=== PATIENT | male | born 1970 | race Caucasian/White ===

== ENCOUNTER 2019-09-14 19:16 | Observation (INO) | payer BC ==
[2019-09-14 19:30] VITALS: RESP 18
[2019-09-14 20:11] LABS: Basophils % (A) 1 %; Eosinophils # (A) 0.1 k/uL (0-0.7); Eosinophils % (A) 2 %; HCT 43.7 % (39.0-53.0); Lymphocytes # (A) 1.2 k/uL (1.0-4.8); Lymphocytes % (A) 27 %; MCH 30.1 pg (25.0-35.0); MCHC 34.4 g/dL (31.0-37.0); MCV 87.3 fL (80.0-100.0); Mean Platelet Volume 7.2; Monocytes # (A) 0.3 k/uL (0-1.0); Monocytes % (A) 7 %; Neutrophils # (A) 2.8 k/uL (1.3-7.7); Neutrophils % (A) 61 %; Platelet Count 259 k/uL (150-450); RDW 12.3 % (11.5-15.5); WBC 4.5 k/uL (3.8-10.6)
[2019-09-14 20:19] LABS: ALT 19 U/L (4-49); AST 30 U/L (17-59); African American GFR (CKD) >90 (>60 ml/min/1.73 sqM); Alkaline Phosphatase 62 U/L (38-126); Anion Gap 7 mmol/L; Blood Urea Nitrogen 15 mg/dL (9-20); Calcium 9.2 mg/dL (8.4-10.2); Carbon Dioxide 25 mmol/L (22-30); Chloride 108 mmol/L (98-107); Glucose 101 mg/dL (74-99); Non-African American GFR(CKD) >90 (>60 ml/min/1.73 sqM); Partial Thromboplastin Time 23.7 sec (22.0-30.0); Potassium 4.2 mmol/L (3.5-5.1); Prothrombin Time 10.5 sec (9.0-12.0); Sodium 140 mmol/L (137-145); Total Bilirubin 0.7 mg/dL (0.2-1.3); Total Protein 6.6 g/dL (6.3-8.2)
--- NOTE | 2019-09-14 20:53 | ED ---
General Adult HPI - General Chief complaint: Chest Pain Stated complaint: Chest Pain Time Seen by Provider: 09/14/19 19:18 Source: patient, EMS Mode of arrival: EMS Limitations: no limitations - History of Present Illness Initial comments: Dictation was produced using [employer] dictation software. please excuse any grammatical, word or spelling errors. Chief Complaint: 49-year-old male presents with chest pain. History of Present Illness: Manju is a 49-year-old male who presents today with chest pain. Patient has no past medical history. States he was at his [employer] when he began experiencing substernal chest pressure. He states that it lasted for several minutes. 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 He called his [employer] who performed EKG. He was given nitroglycerin and aspirin with some improvement of his symptoms. He was then brought to the emergency department for further evaluation. No strong family history. Denies any history of tobacco abuse. No history of hypertension or dyslipidemia. He reports that he does have some light pressure currently however spent improved since the nitroglycerin. The ROS documented in this emergency department record has been reviewed and confirmed by me. Those systems with pertinent positive or negative responses have been documented in the HPI. All other systems are other negative and/or noncontributory. PHYSICAL EXAM: General Impression: Alert and oriented x3, not in acute distress HEENT: Normocephalic atraumatic, extra-ocular movements intact, pupils equal and reactive to light bilaterally, mucous membranes moist. Cardiovascular: Heart regular rate and rhythm, S1&S2 audible, no murmurs, rubs or gallops Chest: Lungs clear to auscultation bilaterally, no rhonchi, no wheeze, no rales Abdomen: Bowel sounds present, abdomen soft, non-tender, non-distended, no organomegaly Musculoskeletal: Pulses present and equal in all extremities, no peripheral edema Motor: no focal deficits noted Neurological: CN II-XII grossly intact, no focal motor or sensory deficits noted Skin: Intact with no visualized rashes Psych: Normal affect and mood ED course: 49-year-old male presents with clinical presentation concerning for acute coronary syndrome. As upon arrival are within acceptable limits. EKG does not demonstrate STEMI or ischemia at this time. Laboratory evaluation obtained. CBC, coag panel, metabolic panel is unre markable. First troponin is negative. Chest x-ray is nonacute. Repeat EKG was obtained showing no dynamic changes. Patient reevaluated at bedside with stable medical condition. Patient will be admitted to observation for surgical and is a cardiology consultation. Discussed patient case with Dr. Carver who is willing to accept patients care. EKG interpretation: Ventricular rate 86, normal sinus rhythm,. Interval 126, QS 84, QTC 421. No AL prolongation, no QTC prolongation, no ST or T-wave changes noted. Overall, this EKG is unremarkable - Related Data Home Medications Medication Instructions Recorded Confirmed Loratadine [Claritin] 10 mg PO DAILY 09/14/19 09/14/19 Multivitamins, Thera [Multivitamin 1 tab PO DAILY 09/14/19 09/14/19 (formulary)] Review of Systems ROS Statement: Those systems with pertinent positive or pertinent negative responses have been documented in the HPI. ROS Other: All systems not noted in ROS Statement are negative. Past Medical History History of Any Multi-Drug Resistant Organisms: None Reported Past Surgical History: Orthopedic Surgery Additional Past Surgical History / Comment(s): 2010 cranial surgery, childhood hip surgery Past Psychological History: No Psychological Hx Reported Smoking Status: Never smoker Past Alcohol Use History: None Reported Past Drug Use History: None Reported General Exam Limitations: no limitations Course Vital Signs 09/14/19 19:19 Temperature 98.0 F Pulse Rate 85 Respiratory 18 Rate Blood Pressure 140/91 O2 Sat by Pulse 96 Oximetry Medical Decision Making - Lab Data Result diagrams: 09/14/19 19:35 09/14/19 19:35 Lab Results 09/14/19 09/14/19 09/14/19 Range/Units 19:35 19:35 19:35 WBC 4.5 (3.8-10.6) k/uL RBC 5.00 (4.30-5.90) m/uL Hgb 15.0 (13.0-17.5) gm/dL Hct 43.7 (39.0-53.0) % MCV 87.3 (80.0-100.0) fL MCH 30.1 (25.0-35.0) pg MCHC 34.4 (31.0-37.0) g/dL RDW 12.3 (11.5-15.5) % Plt Count 259 (150-450) k/uL Neutrophils % 61 % Lymphocytes % 27 % Monocytes % 7 % Eosinophils % 2 % Basophils % 1 % Neutrophils # 2.8 (1.3-7.7) k/uL Lymphocytes # 1.2 (1.0-4.8) k/uL Monocytes # 0.3 (0-1.0) k/uL Eosinophils # 0.1 (0-0.7) k/uL Basophils # 0.0 (0-0.2) k/uL PT 10.5 (9.0-12.0) sec INR 1.0 (<1.2) APTT 23.7 (22.0-30.0) sec Sodium 140 (137-145) mmol/L Potassium 4.2 (3.5-5.1) mmol/L Chloride 108 H (98-107) mmol/L Carbon Dioxide 25 (22-30) mmol/L Anion Gap 7 mmol/L BUN 15 (9-20) mg/dL Creatinine 0.87 (0.66-1.25) mg/dL Est GFR (CKD-EPI)AfAm >90 (>60 ml/min/1.73 sqM) Est GFR (CKD-EPI)NonAf >90 (>60 ml/min/1.73 sqM) Glucose 101 H (74-99) mg/dL Calcium 9.2 (8.4-10.2) mg/dL Magnesium 2.0 (1.6-2.3) mg/dL Total Bilirubin 0.7 (0.2-1.3) mg/dL AST 30 (17-59) U/L ALT 19 (4-49) U/L Alkaline Phosphatase 62 (38-126) U/L Troponin I (0.000-0.034) ng/mL Total Protein 6.6 (6.3-8.2) g/dL Albumin 4.0 (3.5-5.0) g/dL 09/14/19 Range/Units 19:35 WBC (3.8-10.6) k/uL RBC (4.30-5.90) m/uL Hgb (13.0-17.5) gm/dL Hct (39.0-53.0) % MCV (80.0-100.0) fL MCH (25.0-35.0) pg MCHC (31.0-37.0) g/dL RDW (11.5-15.5) % Plt Count (150-450) k/uL Neutrophils % % Lymphocytes % % Monocytes % % Eosinophils % % Basophils % % Neutrophils # (1.3-7.7) k/uL Lymphocytes # (1.0-4.8) k/uL Monocytes # (0-1.0) k/uL Eosinophils # (0-0.7) k/uL Basophils # (0-0.2) k/uL PT (9.0-12.0) sec INR (<1.2) APTT (22.0-30.0) sec Sodium (137-145) mmol/L Potassium (3.5-5.1) mmol/L Chloride (98-107) mmol/L Carbon Dioxide (22-30) mmol/L Anion Gap mmol/L BUN (9-20) mg/dL Creatinine (0.66-1.25) mg/dL Est GFR (CKD-EPI)AfAm (>60 ml/min/1.73 sqM) Est GFR (CKD-EPI)NonAf (>60 ml/min/1.73 sqM) Glucose (74-99) mg/dL Calcium (8.4-10.2) mg/dL Magnesium (1.6-2.3) mg/dL Total Bilirubin (0.2-1.3) mg/dL AST (17-59) U/L ALT (4-49) U/L Alkaline Phosphatase (38-126) U/L Troponin I <0.012 (0.000-0.034) ng/mL Total Protein (6.3-8.2) g/dL Albumin (3.5-5.0) g/dL Disposition Clinical Impression: Chest pain Disposition: ADMITTED IP TO THIS [facility] Condition: Fair Referrals: Alison Marques MD [Primary Care Provider] - 1-2 days Decision Time: 21:10
--- NOTE | 2019-09-14 20:56 | XR ---
EXAMINATION: XR chest 2V DATE AND TIME: 09/14/2019 8:05 PM CLINICAL INDICATION: PHH; Chest Pain TECHNIQUE: Departmental protocol COMPARISON: None FINDINGS: The lungs are clear. The pleural spaces are negative. The cardiac silhouette is not enlarged. The remainder of the mediastinal silhouette is unremarkable. The skeletal structures and soft tissues are negative for acute findings. IMPRESSION: NO ACUTE PROCESS.
[2019-09-14] MEDS ORDERED: NITROGLYCERIN SL TABS 0.4 MG TAB SUBLINGUAL PRN (21:07)
[2019-09-14] MEDS ORDERED: ACETAMINOPHEN TAB 500 MG TAB PO STA (21:41)
[2019-09-15 07:32] LABS: Cholesterol 141 mg/dL (<200); HDL Cholesterol 40 mg/dL (40-60); LDL Cholesterol,Calculated 89 mg/dL (0-99); Triglycerides 61 mg/dL (<150)
--- NOTE | 2019-09-15 08:51 | P.CRDCN ---
History of Present Illness History of present illness: HISTORY OF PRESENTING ILLNESS This is a pleasant 49-year-old male with no significant past medical history. 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 We have been asked to see in consultation for chest pain. He states for the previous 2 days he has been experiencing intermittent pain in the chest described as a pressure like someone is pushing on his chest. Initially he had the discomfort that was intermittent, not associated with activity or exertion with no radiation to the arm, back, neck or jaw. On Friday night he did have some mild nausea associated with it. He took some Tums and went to sleep. He woke up Friday feeling normal however as the day went on he continued to have intermittent pressure, the nausea had subsided. He has a physically active job and didn't notice that the pain was worse with activity or oral intake. Later in the evening on Friday he was watching a choir concert when he again felt a pressure in the chest this time it seemed to radiate throughout the entire chest and fan out. He had associated lightheaded feeling, shortness of breath, diaphoresis and his told him he was quite pale. EMS was called. On arrival his blood pressure is noted to be quite high in the 180s systolic. He was given some Bentyl nitroglycerin and aspirin. In route to the emergency department his chest discomfort didn't subside. DIAGNOSTICS EKG reveals sinus mechanism 2. Chest xray negative for an acute cardiopulmonary process. Laboratory reviewed, CBC unremarkable, sodium 140, potassium 4.2, creatinine 0.87, cardiac enzymes negative 3, magnesium 2.0, LDL 89. He takes no daily cardiac medications. REVIEW OF SYSTEMS At the time of my exam: CONSTITUTIONAL: Denies fever or chills. CARDIOVASCULAR: Denies chest pain, shortness of breath, orthopnea, PND or palpitations. RESPIRATORY: Denies cough. GASTROINTESTINAL: Denies abdominal pain, diarrhea, constipation, nausea or vomiting. MUSCULOSKELETAL: Denies myalgias. NEUROLOGIC: Denies numbness, tingling or weakness. ENDOCRINE: Denies fatigue, weight change, polydipsia or polyurina. GENITOURINARY: Denies burning, hematuria or urgency with micturation. HEMATOLOGIC: Denies history of anemia or bleeding. PHYSICAL EXAMINATION Blood pressure 112/73 heart rate 73 afebrile and maintaining oxygen saturation on room air. CONSTITUTIONAL: No apparent distress. HEENT: Head is normocephalic. Pupils are equal, round. Sclerae anicteric. Mucous membranes of the mouth are moist. No JVD. No carotid bruit. CHEST EXAMINATION: Lungs are clear to auscultation. No chest wall tenderness is noted on palpation or with deep breathing. HEART EXAMINATION: Regular rate and rhythm. S1, S2 heard. No murmurs, gallops or rub. ABDOMEN: Soft, nontender. Positive bowel sounds. EXTREMITIES: 2+ peripheral pulses, no lower extremity edema and no calf tenderness. NEUROLOGIC EXAMINATION: Patient is awake, alert and oriented x3. ASSESSMENT Chest pain, atypical. An acute event has been ruled out. Near syncope Hypertensive urgency PLAN An acute event has been ruled out. Check d-dimer. Obtain 2D echocardiogram and doppler study to assess cardiac structure and function. Perform exercise stress test to assess for stress induced ischemic changes. Thank you kindly for this consultation. Nurse Practitioner note has been reviewed, I agree with a documented findings and plan of care. Patient was seen and examined. Past Medical History History of Any Multi-Drug Resistant Organisms: None Reported Past Surgical History: Orthopedic Surgery Additional Past Surgical History / Comment(s): 2010 cranial surgery, childhood hip surgery. 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, neck, chest Smoking Status: Never smoker - Past Family History Father Family Medical History: Diabetes Mellitus Mother Additional Family Medical History / Comment(s): Degenerative muscle Medications and Allergies Home Medications Medication Instructions Recorded Confirmed Type Loratadine [Claritin] 10 mg PO DAILY 09/14/19 09/14/19 History Multivitamins, Thera [Multivitamin 1 tab PO DAILY 09/14/19 09/14/19 History (formulary)] Allergies Allergy/AdvReac Type Severity Reaction Status Date / Time No Known Allergies Allergy Verified 09/14/19 22:00 Physical Exam Vitals: Vital Signs Temp Pulse Pulse Resp BP BP Pulse Ox 09/15/19 04:43 97.3 F L 78 18 115/67 97 09/15/19 04:00 18 09/15/19 00:00 18 09/14/19 22:39 18 09/14/19 22:03 97.7 F 72 18 132/84 96 09/14/19 21:29 73 18 140/86 97 09/14/19 19:19 98.0 F 85 18 140/91 96 Intake and Output 09/14/19 09/15/19 09/15/19 22:59 06:59 14:59 Other: # Voids 1 1 Weight 81.647 kg Results 09/14/19 19:35 09/14/19 19:35 Cardiac Enzymes 09/14/19 09/14/19 09/15/19 Range/Units 19:35 19:35 02:09 AST 30 (17-59) U/L Troponin I <0.012 <0.012 (0.000-0.034) ng/mL 09/15/19 Range/Units 07:07 AST (17-59) U/L Troponin I <0.012 (0.000-0.034) ng/mL Coagulation 09/14/19 Range/Units 19:35 PT 10.5 (9.0-12.0) sec APTT 23.7 (22.0-30.0) sec Lipids 09/15/19 Range/Units 07:09 Triglycerides 61 (<150) mg/dL Cholesterol 141 (<200) mg/dL HDL Cholesterol 40 (40-60) mg/dL CBC 09/14/19 Range/Units 19:35 WBC 4.5 (3.8-10.6) k/uL RBC 5.00 (4.30-5.90) m/uL Hgb 15.0 (13.0-17.5) gm/dL Hct 43.7 (39.0-53.0) % Plt Count 259 (150-450) k/uL Comprehensive Metabolic Panel 09/14/19 Range/Units 19:35 Sodium 140 (137-145) mmol/L Potassium 4.2 (3.5-5.1) mmol/L Chloride 108 H (98-107) mmol/L Carbon Dioxide 25 (22-30) mmol/L BUN 15 (9-20) mg/dL Creatinine 0.87 (0.66-1.25) mg/dL Glucose 101 H (74-99) mg/dL Calcium 9.2 (8.4-10.2) mg/dL AST 30 (17-59) U/L ALT 19 (4-49) U/L Alkaline Phosphatase 62 (38-126) U/L Total Protein 6.6 (6.3-8.2) g/dL Albumin 4.0 (3.5-5.0) g/dL Current Medications Generic Name Dose Route Start Last Admin Trade Name Freq PRN Reason Stop Dose Admin Aspirin 325 mg 09/15/19 09:00 Aspirin PO DAILY GRACIE Nitroglycerin 0.4 mg 09/14/19 21:07 Nitrostat SUBLINGUAL Q5M PRN Chest Pain Intake and Output 09/14/19 09/15/19 09/15/19 22:59 06:59 14:59 Other: # Voids 1 1 Weight 81.647 kg 09/14/19 19:35 09/14/19 19:35
[2019-09-15] MEDS ORDERED: ASPIRIN 325 MG TAB PO SCH (09:00)
[2019-09-15] MEDS ORDERED: LISINOPRIL 5 MG TAB PO SCH (10:15)
[2019-09-15 13:15] VITALS: BP 137/90; PULSE 90; TEMP 98
--- NOTE | 2019-09-15 14:08 | EST ---
EXERCISE STRESS AGE: 49 SEX: M HT: 6'1" WT: 180 PROTOCOL: Mike Stress Test STAGE: V. DURATION OF EXERCISE: 13:00 HEART RATE REST: 85 BLOOD PRESSURE REST: 146/86 MAXIMUM HEART RATE ACHIEVED: 159 MAXIMUM BLOOD PRESSURE: 175/93 85% MPHR: 146 100% MPHR: 172 METS: 13.5 INDICATIONS: Chest pain. CLINICAL INFORMATION: STRESS DATA: Heart rate 85, blood pressure is 146/86 mmHg. Baseline EKG showed sinus mechanism. The patient exercised on the treadmill according to Mike protocol for a total of 13 minutes and achieved 13.5 METs. Max heart rate was 159, which is about 92% of maximum predicted heart rate. Maximum blood pressure was 175/93 mmHg. Clinically, the patient did not have any symptoms of chest pain or chest discomfort. The EKG did not show any significant ST or T-wave abnormalities concerning for ischemia. CONCLUSION: 1. Excellent exercise tolerance. 2. Normal EKG in response to exercise. 3. Essentially normal exercise treadmill stress test for the patient. MMODL / IJN: [id number] /
--- NOTE | 2019-09-15 21:45 | P.HPIM ---
History of Present Illness H&P Date: 09/15/19 Chief Complaint: chest pain patient is a 49-year-old male with outputsignificant past medicalhistory came to ER with the complaints of midsternalchest pain. Patient says that he hadmidsternal and epigastric r region chest pain day before yesterdaybut subsided. Patient went to see his daughters concert yesterday.where he was sitting in the chair and suddenly felt pressure-like sensation in the epigastric and midsternal region. Patient felt verydizzy and diaphoretic. Also hadshortness of breath. Denied any radiation to the arm orback to dizzy. patient [place] and [place]. while he she was coming to the hospital by EMS his dizzinessresolved but hadchest discomfort.. On arrival to the hospital patient was found have elevated blood pressures with SBP in 180s. Did have some nausea. Denied any vomiting. Denied any abdominalpain..no recent illness or sick contacts. No fever no chills.denied any [id number] pain medication use. denied any history of GERD. EKG showednormal sinus rhythm Chest x-ray showed no acute cardiopulmonary process. troponin 3 negative. Review of Systems Constitutional: Patient denies any fever or chills . No generalized weakness or weight loss. Abdomen: Patient denied nausea vomiting and diarrhea and abdominal pain. Cardiovascular: Patient denies any chest pain or short of breath no palpitations. Respiratory: patient denied any cough is from production. No shortness of breath Neurologic: Patient denied any numbness or tingling headache. Musculoskeletal: Patient denies any complaints of joint swelling or deformity. Skin: Negative Psychiatric: Negative Endocrine: No heat or cold intolerance. No recent weight gain. Genitourinary: No dysuria or hematuria. All other 14 point ROS negative except the above Past Medical History History of Any Multi-Drug Resistant Organisms: None Reported Past Surgical History: Orthopedic Surgery Additional Past Surgical History / Comment(s): 2010 cranial surgery, childhood hip surgery. 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, neck, chest Smoking Status: Never smoker - Past Family History Father Family Medical History: Diabetes Mellitus Mother Additional Family Medical History / Comment(s): Degenerative muscle Medications and Allergies Home Medications Medication Instructions Recorded Confirmed Type Loratadine [Claritin] 10 mg PO DAILY 09/14/19 09/14/19 History Multivitamins, Thera [Multivitamin 1 tab PO DAILY 09/14/19 09/14/19 History (formulary)] Lisinopril [Zestril] 5 mg PO DAILY #30 tab 09/15/19 Rx Allergies Allergy/AdvReac Type Severity Reaction Status Date / Time No Known Allergies Allergy Verified 09/14/19 22:00 Physical Exam Vitals: Vital Signs Temp Pulse Pulse Resp BP BP BP 09/15/19 09:06 115/79 104/70 09/15/19 08:00 98.1 F 73 18 09/15/19 04:43 97.3 F L 78 18 09/15/19 04:00 18 09/15/19 00:00 18 09/14/19 22:39 18 09/14/19 22:03 97.7 F 72 18 09/14/19 21:29 73 18 140/86 09/14/19 19:19 98.0 F 85 18 140/91 BP Pulse Ox 09/15/19 09:06 115/74 09/15/19 08:00 112/73 96 09/15/19 04:43 115/67 97 09/15/19 04:00 09/15/19 00:00 09/14/19 22:39 09/14/19 22:03 132/84 96 09/14/19 21:29 97 09/14/19 19:19 96 Intake and Output 09/14/19 09/15/19 09/15/19 22:59 06:59 14:59 Other: Voiding Method Toilet # Voids 1 1 Weight 81.647 kg 81.65 kg PHYSICAL EXAMINATION: Patient is lying in the bed comfortably, no acute distress, awake alert and oriented.. HEENT: Normocephalic. Neck is supple. Pupils reactive. Nostrils clear. Oral cavity is moist. Ears reveal no drainage. Neck reveals no JVD, carotid bruits, or thyromegaly. CHEST EXAMINATION: Trachea is central. Symmetrical expansion. Lung sommer clear to auscultation and percussion. CARDIAC: Normal S1, S2 with no gallops. No murmurs ABDOMEN: Soft. Bowel sounds normal. No organomegaly. No abdominal bruits. Extremities: reveal no edema. No clubbing or cyanosis Neurologically awake, alert, oriented x3 with well-coordinated movements. No focal deficits noted Skin: No rash or skin lesions. Psychiatric: Coperative. Nonsuicidal Musculoskeletal: No joint swelling or deformity. Normal range of motion. Results CBC & Chem 7: 09/14/19 19:35 09/14/19 19:35 Labs: Abnormal Lab Results - Last 24 Hours (Table) 09/14/19 Range/Units 19:35 Chloride 108 H (98-107) mmol/L Glucose 101 H (74-99) mg/dL Thrombosis Risk Factor Assmnt - DVT/VTE Prophylaxis DVT/VTE Prophylaxis: Pharmacologic Prophylaxis ordered - Choose All That Apply Each Factor Represents 1 point: Age 41-60 years Thrombosis Risk Factor Assessment Total Risk Factor Score: 1 Thrombosis Risk Factor Assessment Level: Low Risk Assessment and Plan Assessment: atypical chest pain. ACS has been ruled out. Uncontrolled hypertensionon admission. Patient does not have history of hypertension. Dizziness and near syncope Rule out arrhythmia. DVT prophylaxis Plan: patient will be continued on telemetry monitoring. Serial EKG and troponins negati D-dimer is not elevated. Cardiology has seen the patient underwent exercisestress test.Plan forevent monitor placement and follow with cardiology as an outpatient. Patient is currentlychest pain-free. Time with Patient: Greater than 30
--- NOTE | 2019-09-15 21:46 | P.DS ---
Providers Date of admission: 09/14/19 21:09 Expected date of discharge: 09/15/19 Attending physician: Jamison Carver Consults: 09/14/19 21:07 Consult Physician Urgent Consulting Provider: Chichi Jalloh Consult Reason/Comments: chest pain Do you want consulting provider notified?: Yes Primary care physician: Alison Marques [facility] Course: ischarge diagnosis atypical chest pain. ACS has been ruled out. Uncontrolled hypertensionon admission. Patient does not have history of hypertension. Dizziness and near syncope Rule out arrhythmia.event monitor llow-up DVT prophylaxis patient is a 49-year-old male with outputsignificant past medicalhistory came to ER with the complaints of midsternalchest pain. Patient says that he hadmidsternal and epigastric r region chest pain day before yesterdaybut subsided. Patient went to see his daughters concert yesterday.where he was sitting in the chair and suddenly felt pressure-like sensation in the epigastric and midsternal region. Patient felt verydizzy and diaphoretic. Also hadshortness of breath. Denied any radiation to the arm orback to dizzy. patient [place] and [place]. while he she was coming to the hospital by EMS his dizzinessresolved but hadchest discomfort.. On arrival to the hospital patient was found have elevated blood pressures with SBP in 180s. Did have some nausea. Denied any vomiting. Denied any abdominalpain..no recent illness or sick contacts. No fever no chills.denied any [id number] pain medication use. denied any history of GERD. EKG showednormal sinus rhythm Chest x-ray showed no acute cardiopulmonary process. troponin 3 negative. patient was continued on telemetry monitoring. Serial EKG and troponins negati D-dimer is not elevated. Cardiology has seen the patient underwent exercisestress test.negative stress test.Plan for event monitor placement and follow with cardiology as an outpatient. Patient is currentlychest pain-free. patient is being discharged home. PHYSICAL EXAMINATION: Patient is lying in the bed comfortably, no acute distress, awake alert and oriented.. HEENT: Normocephalic. Neck is supple. Pupils reactive. Nostrils clear. Oral ca vity is moist. Ears reveal no drainage. Neck reveals no JVD, carotid bruits, or thyromegaly. CHEST EXAMINATION: Trachea is central. Symmetrical expansion. Lung sommer clear to auscultation and percussion. CARDIAC: Normal S1, S2 with no gallops. No murmurs ABDOMEN: Soft. Bowel sounds normal. No organomegaly. No abdominal bruits. Extremities: reveal no edema. No clubbing or cyanosis Neurologically awake, alert, oriented x3 with well-coordinated movements. No focal deficits noted Skin: No rash or skin lesions. Psychiatric: Coperative. Nonsuicidal Musculoskeletal: No joint swelling or deformity. Normal range of motion. discharge vitals reviewed. Patient Condition at Discharge: Fair Plan - Discharge Summary New Discharge Prescriptions: New Lisinopril [Zestril] 5 mg PO DAILY #30 tab Continue Loratadine [Claritin] 10 mg PO DAILY Multivitamins, Thera [Multivitamin (formulary)] 1 tab PO DAILY Discharge Medication List Loratadine [Claritin] 10 mg PO DAILY 09/14/19 [History] Multivitamins, Thera [Multivitamin (formulary)] 1 tab PO DAILY 09/14/19 [History] Lisinopril [Zestril] 5 mg PO DAILY #30 tab 09/15/19 [Rx] Follow up Appointment(s)/Referral(s): Sergio Manzano MD [STAFF PHYSICIAN] - 10/11/19 4:00 pm Alison Marques MD [Primary Care Provider] - 09/17/19 9:00 am (With Johanne SHER) Patient Instructions/Handouts: Chest Pain (DC) Discharge Disposition: HOME SELF-CARE
--- NOTE | 2019-09-16 12:01 | ECHOF ---
Referral Reason:cp, sob, dizziness MEASUREMENTS -------- HEIGHT: 185.4 cm WEIGHT: 81.6 kg BP: RVIDd: 4.8 cm (< 3.3) IVSd: 1.3 cm (0.6 - 1.1) LVIDd: 4.7 cm (3.9 - 5.3) LVPWd: 1.4 cm (0.6 - 1.1) IVSs: 1.5 cm LVIDs: 3.4 cm LVPWs: 1.8 cm LAESV Index (A-L): 16.17 ml/m Ao Diam: 3.0 cm (2.0 - 3.7) AV Cusp: 2.1 cm (1.5 - 2.6) LA Diam: 2.7 cm (2.7 - 3.8) MV EXCURSION: 17.766 mm (> 18.000) MV EF SLOPE: 123 mm/s (70 - 150) EPSS: 0.9 cm MV E Fco: 0.65 m/s MV DecT: 98 ms MV A Fco: 0.48 m/s MV E/A Ratio: 1.36 RAP: 5.00 mmHg RVSP: 25.37 mmHg FINDINGS -------- Sinus rhythm. This was a technically good study. The left ventricular size is normal. There is mild concentric left ventricular hypertrophy. There is normal global left ventricular contractility. Overall left ventricular systolic function is nor mal with, an EF between 55 - 60 %. The diastolic filling pattern is normal for the age of the patie nt 8.74. The right ventricle is mildly enlarged. Normal LA size by volume 22+/-6 ml/m2. The right atrium is mildly enlarged. Interatrial and interventricular septum intact. The aortic valve is trileaflet and appears structurally normal. There is no evidence of aortic regu rgitation. There is no evidence of aortic stenosis. There is trace mitral regurgitation. Mild tricuspid regurgitation present. There is no evidence of pulmonary hypertension. The right v entricular systolic pressure, as measured by Doppler, is 25.37mmHg. There is no pulmonic regurgitation present. The aortic root size is normal. Normal inferior vena cava with normal inspiratory collapse consistent with estimated right atrial pre ssure of 5 mmHg. There is no pericardial effusion. CONCLUSIONS -------- 1. Sinus rhythm. 2. This was a technically good study. 3. The left ventricular size is normal. 4. There is mild concentric left ventricular hypertrophy. 5. There is normal global left ventricular contractility. 6. Overall left ventricular systolic function is normal with, an EF between 55 - 60 %. 7. The diastolic filling pattern is normal for the age of the patient 8.74 8. The right ventricle is mildly enlarged. 9. Normal LA size by volume 22+/-6 ml/m2. 10. The right atrium is mildly enlarged. 11. Interatrial and interventricular septum intact. 12. The aortic valve is trileaflet and appears structurally normal. 13. There is no evidence of aortic regurgitation. 14. There is no evidence of aortic stenosis. 15. There is trace mitral regurgitation. 16. Mild tricuspid regurgitation present. 17. There is no evidence of pulmonary hypertension. 18. The right ventricular systolic pressure, as measured by Doppler, is 25.37mmHg. 19. There is no pulmonic regurgitation present. 20. The aortic root size is normal. 21. Normal inferior vena cava with normal inspiratory collapse consistent with estimated right atrial pressure of 5 mmHg. 22. There is no pericardial effusion. METAL WINDOW FRAME MAKER: Agustina Faye RDCS
--- NOTE | 2019-10-01 11:27 | EM ---
EVENT MONITOR Patient was monitored between September 15, 2019 and September 29, 2019. The rhythm strip available showed sinus mechanism with single PVCs with episode of sinus tachycardia. There were no pauses noted. There was one full complex ventricular tachycardia. CONCLUSION: 1. Sinus mechanism baseline rhythm. 2. Single premature ventricular contractions with one full complex ventricular tachycardia. 3. No pauses. 4. No atrial fibrillation. MMODL / IJN: [id number] /
== END 2019-09-15 15:22 | disposition home or self-care (01) ==
LOC: EC 19:16 → 1SOBS 21:09
PROVIDERS: ADMIT Internal Medicine; ATTEND Internal Medicine
DX: R07.89 Other chest pain (principal); I16.0 Hypertensive urgency; Z79.899 Other long term (current) drug therapy; Z83.3 Family history of diabetes mellitus; R55 Syncope and collapse
CPT/HCPCS: 93005 ×2; 99285; 36415; 93017; 93306; 93270; 85379; 80061; 80053; 83735; 84484 ×2; 85025; 85610; 85730; 71046; G0378 ×2

== ENCOUNTER 2019-11-16 17:25 | Inpatient (IN) | payer BC ==
[2019-11-16] MEDS ORDERED: NITROGLYCERIN SL TABS 0.4 MG TAB SUBLINGUAL STA (17:36)
[2019-11-16] MEDS ORDERED: ASPIRIN 81 MG PO STA (17:36)
[2019-11-16] MEDS ORDERED: NITROGLYCERIN-D5W PMX 50 MG in DEXTROSE/WATER 1 250ML.BAG IV STA (17:36)
--- NOTE | 2019-11-16 17:39 | ED ---
General Adult HPI - General Stated complaint: Chest Pain Time Seen by Provider: 11/16/19 17:27 Source: patient, RN notes reviewed Mode of arrival: EMS Limitations: no limitations - History of Present Illness Initial comments: Patient is a pleasant 49-year-old male presenting to the emergency Department with complaints of chest discomfort. Tightness is left lower anterior chest. Discomfort is somewhat severe at this time. Discomfort started 2 hours ago and has progressively worsened. Patient does have some mild associated dyspnea. Symptoms do increase with deep breaths as well. Patient did have chest discomfort around a year ago and there was concern for ventricular tachycardia that time. Patient had a monitor for a week and then was placed on a monitor again recently. Discomfort does radiate towards left shoulder. No nausea or diaphoresis. - Related Data Home Medications Medication Instructions Recorded Confirmed Loratadine [Claritin] 10 mg PO DAILY 09/14/19 09/14/19 Multivitamins, Thera [Multivitamin 1 tab PO DAILY 09/14/19 09/14/19 (formulary)] Previous Rx's Medication Instructions Recorded Lisinopril [Zestril] 5 mg PO DAILY #30 tab 09/15/19 Allergies Allergy/AdvReac Type Severity Reaction Status Date / Time No Known Allergies Allergy Verified 11/16/19 17:45 Review of Systems ROS Statement: Those systems with pertinent positive or pertinent negative responses have been documented in the HPI. ROS Other: All systems not noted in ROS Statement are negative. Constitutional: Denies: fever Eyes: Denies: eye pain ENT: Denies: ear pain Respiratory: Reports: as per HPI Cardiovascular: Reports: as per HPI, chest pain. Denies: palpitations Endocrine: Denies: fatigue Gastrointestinal: Denies: abdominal pain Genitourinary: Denies: dysuria Musculoskeletal: Denies: back pain Skin: Denies: rash Neurological: Denies: weakness Past Medical History History of Any Multi-Drug Resistant Organisms: None Reported Past Surgical History: Orthopedic Surgery Additional Past Surgical History / Comment(s): 2010 cranial surgery, childhood hip surgery. 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, neck, chest Smoking Status: Never smoker - Past Family History Father Family Medical History: Diabetes Mellitus Mother Additional Family Medical History / Comment(s): Degenerative muscle General Exam Limitations: no limitations General appearance: alert Head exam: Present: normocephalic Eye exam: Present: normal appearance, PERRL ENT exam: Present: normal oropharynx Neck exam: Present: normal inspection Respiratory exam: Present: normal lung sounds bilaterally. Absent: chest wall tenderness Cardiovascular Exam: Present: regular rate, normal rhythm Expanded Peripheral pulses: 2+: Radial (R), Radial (L), Posterior Tibialis (R), Posterior Tibialis (L), Dorsalis Pedis (R), Dorsalis Pedis (L) GI/Abdominal exam: Present: soft. Absent: tenderness Extremities exam: Present: normal inspection. Absent: pedal edema, calf tenderness Neurological exam: Present: alert Psychiatric exam: Present: normal affect, normal mood Skin exam: Present: normal color Course Vital Signs 11/16/19 11/16/19 17:41 18:12 Temperature 98.0 F Pulse Rate 86 84 Respiratory 18 Rate Blood Pressure 117/75 141/79 O2 Sat by Pulse 98 Oximetry EKG Findings - EKG Comments: EKG Findings:: Sinus rhythm and 93. WA 128. QRS 76. QT 332. QTC 412. Normal axis. Normal QRS. No acute ST change. PVC present. Medical Decision Making - Medical Decision Making Patient reevaluated and is significantly improved with nitroglycerin drip. Discomfort currently 11/08. Patient and family updated on results and plan. Case was crusted detail with Dr. Sears, covering for Dr. Marques, who will admit. - Lab Data Result diagrams: 11/16/19 17:47 11/16/19 17:47 Lab Results 11/16/19 11/16/19 11/16/19 Range/Units 17:47 17:47 17:47 WBC 5.3 (3.8-10.6) k/uL RBC 4.89 (4.30-5.90) m/uL Hgb 14.7 (13.0-17.5) gm/dL Hct 41.6 (39.0-53.0) % MCV 85.1 (80.0-100.0) fL MCH 30.1 (25.0-35.0) pg MCHC 35.3 (31.0-37.0) g/dL RDW 12.3 (11.5-15.5) % Plt Count 272 (150-450) k/uL Neutrophils % 62 % Lymphocytes % 27 % Monocytes % 5 % Eosinophils % 3 % Basophils % 0 % Neutrophils # 3.3 (1.3-7.7) k/uL Lymphocytes # 1.4 (1.0-4.8) k/uL Monocytes # 0.3 (0-1.0) k/uL Eosinophils # 0.1 (0-0.7) k/uL Basophils # 0.0 (0-0.2) k/uL Sodium 137 (137-145) mmol/L Potassium 3.6 (3.5-5.1) mmol/L Chloride 104 (98-107) mmol/L Carbon Dioxide 27 (22-30) mmol/L Anion Gap 6 mmol/L BUN 16 (9-20) mg/dL Creatinine 0.80 (0.66-1.25) mg/dL Est GFR (CKD-EPI)AfAm >90 (>60 ml/min/1.73 sqM) Est GFR (CKD-EPI)NonAf >90 (>60 ml/min/1.73 sqM) Glucose 115 H (74-99) mg/dL Calcium 9.2 (8.4-10.2) mg/dL Magnesium 2.1 (1.6-2.3) mg/dL Total Bilirubin 0.6 (0.2-1.3) mg/dL AST 34 (17-59) U/L ALT 24 (4-49) U/L Alkaline Phosphatase 57 (38-126) U/L Troponin I <0.012 (0.000-0.034) ng/mL Total Protein 6.2 L (6.3-8.2) g/dL Albumin 3.9 (3.5-5.0) g/dL Amylase 52 (30-110) U/L Lipase 79 (23-300) U/L - Radiology Data Radiology results: image reviewed (Chest x-ray shows no acute process) Critical Care Time Critical Care Time: Yes Total Critical Care Time: 32 Disposition Clinical Impression: Unstable angina pectoris Disposition: ADMITTED IP TO THIS HOSP Is patient prescribed a controlled substance at d/c from ED?: No Referrals: Alison Marques MD [Primary Care Provider] - 1-2 days Decision Time: 18:36
[2019-11-16 18:00] LABS: Basophils % (A) 0 %; Eosinophils # (A) 0.1 k/uL (0-0.7); Eosinophils % (A) 3 %; HCT 41.6 % (39.0-53.0); HGB 14.7 gm/dL (13.0-17.5); Lymphocytes # (A) 1.4 k/uL (1.0-4.8); Lymphocytes % (A) 27 %; MCH 30.1 pg (25.0-35.0); MCHC 35.3 g/dL (31.0-37.0); MCV 85.1 fL (80.0-100.0); Mean Platelet Volume 7.3; Monocytes # (A) 0.3 k/uL (0-1.0); Monocytes % (A) 5 %; Neutrophils # (A) 3.3 k/uL (1.3-7.7); Neutrophils % (A) 62 %; Platelet Count 272 k/uL (150-450); RBC 4.89 m/uL (4.30-5.90); RDW 12.3 % (11.5-15.5); WBC 5.3 k/uL (3.8-10.6)
[2019-11-16 18:08] LABS: ALT 24 U/L (4-49); AST 34 U/L (17-59); African American GFR (CKD) >90 (>60 ml/min/1.73 sqM); Albumin 3.9 g/dL (3.5-5.0); Alkaline Phosphatase 57 U/L (38-126); Amylase 52 U/L (30-110); Anion Gap 6 mmol/L; Blood Urea Nitrogen 16 mg/dL (9-20); Calcium 9.2 mg/dL (8.4-10.2); Carbon Dioxide 27 mmol/L (22-30); Chloride 104 mmol/L (98-107); Glucose 115 mg/dL (74-99); Magnesium 2.1 mg/dL (1.6-2.3); Non-African American GFR(CKD) >90 (>60 ml/min/1.73 sqM); Potassium 3.6 mmol/L (3.5-5.1); Sodium 137 mmol/L (137-145); Total Bilirubin 0.6 mg/dL (0.2-1.3); Total Protein 6.2 g/dL (6.3-8.2)
--- NOTE | 2019-11-16 18:13 | XR ---
EXAMINATION TYPE: XR chest 2V DATE OF EXAM: 11/16/2019 COMPARISON: 09/14/2019 HISTORY: Chest pain TECHNIQUE: FINDINGS: Heart is normal. Lungs are clear of infiltrate. There is no heart failure. Costophrenic ang les are clear. There are no hilar masses. There are chest leads. Bony thorax is intact. IMPRESSION: No active cardiopulmonary disease. No change.
[2019-11-16 18:26] LABS: D-Dimer <0.17 mg/L FEU (<0.60); Partial Thromboplastin Time 24.6 sec (22.0-30.0); Prothrombin Time 10.5 sec (9.0-12.0)
[2019-11-16] MEDS ORDERED: HEPARIN SODIUM,PORCINE 5,000 UNIT/ML 1 ML VIAL IV ONE (18:37)
[2019-11-16] MEDS ORDERED: HEPARIN SODIUM,PORCINE 5,000 UNIT/ML 1 ML VIAL IV PRN (18:37)
[2019-11-16] MEDS ORDERED: HEPARIN SOD,PORK IN 0.45% NACL 25,000 UNIT in 0.45% NACL 1 250ML.BAG IV SCH (18:45)
[2019-11-16] MEDS ORDERED: ACETAMINOPHEN TAB 325 MG TAB PO PRN (22:48)
[2019-11-17 02:21] VITALS: TEMP 97.5
[2019-11-17 05:50] LABS: Mean Platelet Volume 7.2; Platelet Count 220 k/uL (150-450)
[2019-11-17 06:34] LABS: Cholesterol 124 mg/dL (<200); HDL Cholesterol 40 mg/dL (40-60); LDL Cholesterol,Calculated 75 mg/dL (0-99); Triglycerides 44 mg/dL (<150)
--- NOTE | 2019-11-17 08:57 | P.CRDCN ---
History of Present Illness Consult date: 11/17/19 Requesting physician: Christiano Gonzalez Consult reason: chest pain Chief complaint: Chest pain History of present illness: This is a pleasant 49-year-old gentleman with no prior documented h istory of hypertension, no hyperlipidemia, nondiabetic, nonsmoker. Presents to the hospital via EMS with symptoms of chest discomfort. According to the patient, the pain was in the left side of his chest, ultimately went into his shoulder area. He states that the pain was significantly worse with taking a deep breath. He denies any diaphoresis or nausea. According to the patient, after the second nitroglycerin in the EMS he did get some relief of symptoms but the pain did come back later on on arrival to the emergency room. He is currently on IV nitroglycerin drip. Patient does currently have a 30 day event monitor in place, he is noted on the monitor at times to have occasional PVCs. The patient was in the hospital in August 2019, he underwent an echocardiogram with Doppler study at that time which revealed a normal left ventricular systolic function, he had a regular stress test and walked for 13 minutes, stress test was normal. Chest x-ray was normal. EKG shows a normal sinus rhythm with occasional PVCs. Blood pressure 104/70 with a heart rate in the 70s, 100% on room air. White blood cell count 5.3, hemoglobin 14.7, platelet count 272. D-dimer negative. Sodium 137, potassium 3.6, BUN 16, creatinine 0.8. Troponins are negative 3. At the time of my examination this morning, the patient is currently chest pain-free. 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, neck, chest Past Anesthesia/Blood Transfusion Reactions: No Reported Reaction Past Psychological History: No Psychological Hx Reported Smoking Status: Never smoker Past Alcohol Use History: None Reported Past Drug Use History: None Reported - Past Family History Father Family Medical History: Diabetes Mellitus Mother Additional Family Medical History / Comment(s): Degenerative muscle Medications and Allergies Home Medications Medication Instructions Recorded Confirmed Type Loratadine [Claritin] 10 mg PO DAILY 09/14/19 11/16/19 History Multivitamins, Thera [Multivitamin 1 tab PO DAILY 09/14/19 11/16/19 History (formulary)] Lisinopril [Zestril] 5 mg PO DAILY #30 tab 09/15/19 11/16/19 Rx Ascorbic Acid [Vitamin C] 500 mg PO Q48H 11/16/19 11/16/19 History Allergies Allergy/AdvReac Type Severity Reaction Status Date / Time No Known Allergies Allergy Verified 11/16/19 18:53 Physical Exam Vitals: Vital Signs Temp Pulse Pulse Resp BP BP Pulse Ox 11/17/19 08:30 79 18 104/74 100 11/17/19 03:35 80 18 118/72 97 11/17/19 00:00 97.5 F L 87 18 119/78 96 11/16/19 20:00 98.1 F 80 18 119/80 96 11/16/19 19:53 88 16 115/78 98 11/16/19 18:12 84 141/79 11/16/19 17:41 98.0 F 86 18 117/75 98 Intake and Output 11/16/19 11/17/19 11/17/19 22:59 06:59 14:59 Other: Voiding Method Toilet Toilet # Voids 1 0 Weight 83.007 kg PHYSICAL EXAMINATION: GENERAL: 49-year-old gentleman in no acute distress at the time of my examination HEENT: Head is atraumatic, normocephalic. Pupils equal, round. Sclera anicteric. Conjunctiva are clear. Mucous membranes of the mouth are moist. Neck is supple. There is no elevated jugular venous pressure. No carotid bruit is heard. HEART EXAMINATION: Heart S1, S2 normal. No murmur or gallop heard. CHEST EXAMINATION: Lungs are clear to auscultation and precussion. No chest wall tenderness is noted on palpation or with deep breathing. ABDOMEN: Soft, nontender. Bowel sounds are heard. No organomegaly noted. EXTREMITIES: 2+ peripheral pulses with no evidence of peripheral edema and no calf tenderness noted. NEUROLOGIC patient is awake, alert and oriented 3 . . Results 11/17/19 05:21 11/16/19 17:47 Cardiac Enzymes 11/16/19 11/16/19 11/17/19 Range/Units 17:47 17:47 00:14 AST 34 (17-59) U/L Troponin I <0.012 <0.012 (0.000-0.034) ng/mL 11/17/19 Range/Units 05:21 AST (17-59) U/L Troponin I <0.012 (0.000-0.034) ng/mL Coagulation 11/16/19 11/17/19 Range/Units 17:47 02:36 PT 10.5 (9.0-12.0) sec APTT 24.6 45.7 H (22.0-30.0) sec Lipids 11/17/19 Range/Units 05:21 Triglycerides 44 (<150) mg/dL Cholesterol 124 (<200) mg/dL HDL Cholesterol 40 (40-60) mg/dL CBC 11/16/19 11/17/19 Range/Units 17:47 05:21 WBC 5.3 (3.8-10.6) k/uL RBC 4.89 (4.30-5.90) m/uL Hgb 14.7 (13.0-17.5) gm/dL Hct 41.6 (39.0-53.0) % Plt Count 272 220 (150-450) k/uL Comprehensive Metabolic Panel 11/16/19 Range/Units 17:47 Sodium 137 (137-145) mmol/L Potassium 3.6 (3.5-5.1) mmol/L Chloride 104 (98-107) mmol/L Carbon Dioxide 27 (22-30) mmol/L BUN 16 (9-20) mg/dL Creatinine 0.80 (0.66-1.25) mg/dL Glucose 115 H (74-99) mg/dL Calcium 9.2 (8.4-10.2) mg/dL AST 34 (17-59) U/L ALT 24 (4-49) U/L Alkaline Phosphatase 57 (38-126) U/L Total Protein 6.2 L (6.3-8.2) g/dL Albumin 3.9 (3.5-5.0) g/dL Current Medications Generic Name Dose Route Start Last Admin Trade Name Freq PRN Reason Stop Dose Admin Acetaminophen 650 mg 11/16/19 22:48 11/16/19 23:01 Tylenol Tab PO 650 mg Q4HR PRN Administration Fever and/ or Pain Aspirin 325 mg 11/17/19 09:00 11/17/19 08:44 Aspirin PO 325 mg DAILY GRACIE Administration Heparin Sodium (Porcine) 0 unit 11/16/19 18:37 Heparin IV Q6HR PRN Low PTT Protocol Nitroglycerin/Dextrose 50 mg/ 250 mls @ 1.5 mls/hr 11/16/19 17:36 11/16/19 18:10 IV Solution IV 11/17/19 17:35 5 mcg/min .Q24H STA 1.5 mls/hr Administration 5 MCG/MIN Heparin Sodium/Sodium Chloride 250 mls @ 9.961 mls/hr 11/16/19 18:45 11/16/19 20:13 25,000 unit/ Sodium Chloride IV 12 units/kg/hr .Q24H GRACIE 9.961 mls/hr Administration Protocol 12 UNITS/KG/HR Lisinopril 5 mg 11/17/19 09:00 11/17/19 08:44 Zestril PO 5 mg DAILY GRACIE Administration Loratadine 10 mg 11/17/19 09:00 11/17/19 08:44 Claritin PO 10 mg DAILY GRACIE Administration Sodium Chloride 10 ml 11/16/19 21:00 11/16/19 22:33 Saline Flush IV Not Given BID GRACIE Intake and Output 11/16/19 11/17/19 11/17/19 22:59 06:59 14:59 Other: Voiding Method Toilet Toilet # Voids 1 0 Weight 83.007 kg 11/17/19 05:21 11/16/19 17:47 EKG Interpretations (text) EKG shows a normal sinus rhythm with occasional PVC Assessment and Plan Plan: Assessment and plan #1 chest pain, atypical for acute coronary syndrome, pleuritic in nature. Troponins negative 3. EKG shows a normal sinus rhythm with occasional PVC. Regular stress test performed in August 2019 negative. #230 day event monitor in place for occasional PVCs. Plan We will discontinue the IV nitroglycerin, discontinue IV heparin, decrease aspirin to 81 mg daily. Schedule the patient for a stress echocardiographic study today. DNP note has been reviewed, I agree with a documented findings and plan of care. Patient was seen and examined.
[2019-11-17] MEDS ORDERED: LORATADINE 10 MG TAB PO SCH (09:00)
[2019-11-17] MEDS ORDERED: ASPIRIN 81 MG PO SCH (09:00)
[2019-11-17] MEDS ORDERED: LISINOPRIL 5 MG TAB PO SCH (09:00)
[2019-11-17] MEDS ORDERED: ASPIRIN 325 MG TAB PO SCH (09:00)
--- NOTE | 2019-11-17 10:46 | ECHOF ---
Referral Reason:ua MEASUREMENTS -------- HEIGHT: 182.9 cm WEIGHT: 83.0 kg BP: 118/72 RVIDd: 3.0 cm (< 3.3) IVSd: 1.3 cm (0.6 - 1.1) LVIDd: 4.2 cm (3.9 - 5.3) LVPWd: 1.2 cm (0.6 - 1.1) IVSs: 1.4 cm LVIDs: 3.2 cm LVPWs: 1.7 cm LA Diam: 3.3 cm (2.7 - 3.8) LAESV Index (A-L): 15.77 ml/m Ao Diam: 3.8 cm (2.0 - 3.7) AV Cusp: 2.2 cm (1.5 - 2.6) MV EXCURSION: 22.777 mm (> 18.000) MV EF SLOPE: 128 mm/s (70 - 150) EPSS: 0.3 cm MV E Fco: 0.65 m/s MV DecT: 214 ms MV A Fco: 0.56 m/s MV E/A Ratio: 1.16 RAP: 5.00 mmHg RVSP: 27.12 mmHg FINDINGS -------- Sinus rhythm. This was a technically good study. The left ventricular size is normal. There is mild concentric left ventricular hypertrophy. Overa ll left ventricular systolic function is normal with, an EF between 55 - 60 %. The diastolic fillin g pattern is normal for the age of the patient 7.05. The right ventricle is normal in size. The left atrial size is normal. Normal LA size by volume 22+/-6 ml/m2. The right atrial size is normal. The aortic valve is trileaflet, and appears structurally normal. No aortic stenosis or regurgitation. Mild mitral annular calcification present. Mild mitral regurgitation is present. Mild tricuspid regurgitation present. Right ventricular systolic pressure is normal at < 35 mmHg. There is no evidence of pulmonary hypertension. There is no pulmonic regurgitation present. The aortic root size is normal. There is no pericardial effusion. CONCLUSIONS -------- 1. Sinus rhythm. 2. This was a technically good study. 3. The left ventricular size is normal. 4. There is mild concentric left ventricular hypertrophy. 5. Overall left ventricular systolic function is normal with, an EF between 55 - 60 %. 6. The diastolic filling pattern is normal for the age of the patient 7.05 7. The right ventricle is normal in size. 8. The left atrial size is normal. 9. Normal LA size by volume 22+/-6 ml/m2. 10. The right atrial size is normal. 11. The aortic valve is trileaflet, and appears structurally normal. No aortic stenosis or regurgitat ion. 12. Mild mitral annular calcification present. 13. Mild mitral regurgitation is present. 14. Mild tricuspid regurgitation present. 15. Right ventricular systolic pressure is normal at < 35 mmHg. 16. There is no evidence of pulmonary hypertension. 17. There is no pulmonic regurgitation present. 18. The aortic root size is normal. 19. There is no pericardial effusion. ORGANIC CHEMIST: Tanika Fishre RDCS
[2019-11-17 13:01] VITALS: BP 121/80; PULSE 81; RESP 16
--- NOTE | 2019-11-17 13:44 | ECHOS ---
STRESS ECHOCARDIOGRAM DATE OF SERVICE: 11/17/2019 INDICATIONS: Chest pain. MEDICATIONS: BASELINE HEART RATE: 76 BASELINE BLOOD PRESSURE: 101/61 MAXIMUM HEART RATE: 153 MAXIMUM BLOOD PRESSURE: 169/80 85% MPHR: 146 100% MPHR: 172 METS: 12.9 MAXIMUM STAGE REACHED: V TOTAL EXERCISE TIME: 12 minutes 30 seconds CLINICAL INFORMATION: This is a stress echo for chest discomfort. Baseline heart rate 76 beats per minute. Baseline blood pressure 101/61 mmHg. The 12-lead ECG shows sinus rhythm with normal cardiac intervals. Patient exercised on a Mike protocol for 12 minutes 30 seconds achieving a peak heart rate of 153 beats per minute. Normal blood pressure response to exercise. There was a [address] depression noted that persisted into recovery. The patient did not have any chest pain. The baseline 2D echo images showed normal LV size and systolic function without segmental wall motion abnormalities. At peak exercise, there was excellent augmentation of overall LV contractility without development of any wall motion abnormalities. At recovery, regional global LV systolic function remained normal. IMPRESSION: No ECG or echocardiographic evidence for ischemia. MMODL / IJN: [id number] /
--- NOTE | 2019-11-17 14:41 | P.DS ---
Providers Date of admission: 11/16/19 18:37 Attending physician: Christiano Gonzalez MD Consults: 11/16/19 18:37 Consult Physician Urgent Consulting Provider: Sergio Manzano Consult Reason/Comments: ua Do you want consulting provider notified?: Yes Primary care physician: Alison Marques Hospital Course: As mentioned in HPI Plan - Discharge Summary Discharge Rx Participant: Yes New Discharge Prescriptions: New Acetaminophen [Tylenol] 500 mg PO Q4-6H PRN #30 tab PRN Reason: Pain No Action Loratadine [Claritin] 10 mg PO DAILY Multivitamins, Thera [Multivitamin (formulary)] 1 tab PO DAILY Lisinopril [Zestril] 5 mg PO DAILY #30 tab Ascorbic Acid [Vitamin C] 500 mg PO Q48H Discharge Medication List Loratadine [Claritin] 10 mg PO DAILY 09/14/19 [History] Multivitamins, Thera [Multivitamin (formulary)] 1 tab PO DAILY 09/14/19 [History] Lisinopril [Zestril] 5 mg PO DAILY #30 tab 09/15/19 [Rx] Ascorbic Acid [Vitamin C] 500 mg PO Q48H 11/16/19 [History] Acetaminophen [Tylenol] 500 mg PO Q4-6H PRN #30 tab 11/17/19 [Rx] Follow up Appointment(s)/Referral(s): Alison Marques MD [Primary Care Provider] - 3 Days Discharge Disposition: HOME SELF-CARE
--- NOTE | 2019-11-17 14:41 | P.HPIM ---
History of Present Illness 49-year-old the male came in with compensative chest discomfort on the left side moderate amount of chest pain sharp in nature and radiating to the shoulder area patient had a stress test recent in August which was negative patient denied any chest pain when I evaluated the patient. Patient denied any diaphoresis associated with that her nausea lightheadedness associated with that patient chest pain is not associated with food. Has some pleuritic competent he is not sure whether it increases with deep breath or she cannot take deep breath because of the pain although there are no fractures he denied any, d-dimer is negative troponins are negative EKG no significant ST-T wave changes except for mild the PVCs. Patient underwent stress test which was negative, patient had a stress echo here echocardiogram was within normal limits. Patient denied any history of anxiety denied any,. Chest x-ray did not show any pneumonia or rib fractures. His symptomatology is not consistent with esophageal spasm. And may have [place] skeletal pain had another stress test today which was negative. Patient will be discharged on Antivert in the form of Tylenol will follow with PCP as an outpatient. Review of Systems REVIEW OF SYSTEMS: CONSTITUTIONAL: No fever, no malaise, no fatigue. HEENT: No recent visual problems or hearing problems. Denied any sore throat. CARDIOVASCULAR: No orthopnea, PND, no palpitations, no syncope. PULMONARY: No shortness of breath, no cough, no hemoptysis. GASTROINTESTINAL: No diarrhea, no nausea, no vomiting, no abdominal pain. NEUROLOGICAL: No headaches, no weakness, no numbness. HEMATOLOGICAL: Denies any bleeding or petechiae. GENITOURINARY: Denies any burning micturition, frequency, or urgency. MUSCULOSKELETAL/RHEUMATOLOGICAL: Denies any joint pain, swelling, or any muscle pain. ENDOCRINE: Denies any polyuria or polydipsia. The rest of the 14-point review of systems is negative. 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, neck, chest Past Anesthesia/Blood Transfusion Reactions: No Reported Reaction Past Psychological History: No Psychological Hx Reported Smoking Status: Never smoker Past Alcohol Use History: None Reported Past Drug Use History: None Reported - Past Family History Father Family Medical History: Diabetes Mellitus Mother Additional Family Medical History / Comment(s): Degenerative muscle Medications and Allergies Home Medications Medication Instructions Recorded Confirmed Type Loratadine [Claritin] 10 mg PO DAILY 09/14/19 11/16/19 History Multivitamins, Thera [Multivitamin 1 tab PO DAILY 09/14/19 11/16/19 History (formulary)] Lisinopril [Zestril] 5 mg PO DAILY #30 tab 09/15/19 11/16/19 Rx Ascorbic Acid [Vitamin C] 500 mg PO Q48H 11/16/19 11/16/19 History Acetaminophen [Tylenol] 500 mg PO Q4-6H PRN #30 tab 11/17/19 Rx Allergies Allergy/AdvReac Type Severity Reaction Status Date / Time No Known Allergies Allergy Verified 11/16/19 18:53 Physical Exam Vitals: Vital Signs Temp Pulse Pulse Pulse Resp BP BP 11/17/19 12:00 81 16 121/80 11/17/19 08:30 79 18 104/74 11/17/19 03:35 80 18 118/72 11/17/19 00:00 97.5 F L 87 18 119/78 11/16/19 20:00 98.1 F 80 18 119/80 11/16/19 19:53 88 16 115/78 11/16/19 18:12 84 141/79 11/16/19 17:41 98.0 F 86 18 117/75 Pulse Ox 11/17/19 12:00 97 11/17/19 08:30 100 11/17/19 03:35 97 11/17/19 00:00 96 11/16/19 20:00 96 11/16/19 19:53 98 11/16/19 18:12 11/16/19 17:41 98 Intake and Output 11/16/19 11/17/19 11/17/19 22:59 06:59 14:59 Other: Voiding Method Toilet Toilet Toilet # Voids 1 0 0 Weight 83.007 kg 83.01 kg PHYSICAL EXAMINATION: GENERAL: The patient is alert and oriented x3, not in any acute distress. Well developed, well nourished. HEENT: Pupils are round and equally reacting to light. EOMI. No scleral icterus. No conjunctival pallor. Normocephalic, atraumatic. No pharyngeal erythema. No thyromegaly. CARDIOVASCULAR: S1 and S2 present. No murmurs, rubs, or gallops. PULMONARY: Chest is clear to auscultation, no wheezing or crackles. ABDOMEN: Soft, nontender, nondistended, normoactive bowel sounds. No palpable organomegaly. MUSCULOSKELETAL: No joint swelling or deformity. EXTREMITIES: No cyanosis, clubbing, or pedal edema. NEUROLOGICAL: Gross neurological examination did not reveal any focal deficits. SKIN: No rashes. Results CBC & Chem 7: 11/17/19 05:21 11/16/19 17:47 Labs: Abnormal Lab Results - Last 24 Hours (Table) 11/16/19 11/17/19 Range/Units 17:47 02:36 APTT 45.7 H (22.0-30.0) sec Glucose 115 H (74-99) mg/dL Total Protein 6.2 L (6.3-8.2) g/dL Thrombosis Risk Factor Assmnt - Choose All That Apply Each Factor Represents 1 point: Age 41-60 years Thrombosis Risk Factor Assessment Total Risk Factor Score: 1 Thrombosis Risk Factor Assessment Level: Low Risk Assessment and Plan Plan: Chest pain: Atypical etiology is not clear, ruled out the acute current syndromes, stresses is negative rule out PE and pneumonia patient will be discharged to follow with PCP as an outpatient on anti-inflammatories patient may have musculoskeletal pain -PVCs and cardiology is recommending a monitor with which patient will be discharged today his PVCs may be related to his low blood pressure patient was asked to check the blood pressure at home although not changing his antidepressant medications -Hypertension: Management as mentioned above. Patient will be discharged today.
== END 2019-11-17 17:36 | disposition home or self-care (01) | DRG 313 ==
LOC: EC 17:25 → 1SOBS 18:37 → OBSVTOIN 18:37 → 3SCARD 19:34
PROVIDERS: ADMIT Internal Medicine; ATTEND Internal Medicine
DX: R07.89 Other chest pain (principal); I10 Essential (primary) hypertension; I49.3 Ventricular premature depolarization; R06.00 Dyspnea, unspecified; Z79.899 Other long term (current) drug therapy; Z83.3 Family history of diabetes mellitus; Z84.89 Family history of other specified conditions
CPT/HCPCS: 36415; 71046; 80053; 80061; 82150; 83690; 83735; 84484; 85025; 85049; 85379; 85610; 85730; 93005; 93306; 93351; 96365; 96366; 96367; 96376; 99291

== ENCOUNTER → 2020-05-05 | Outpatient (CLI) | payer OTHER ==
--- NOTE | 2020-05-05 17:31 | XR ---
EXAMINATION TYPE: XR knee complete LT DATE OF EXAM: 05/05/2020 COMPARISON: NONE HISTORY: Knee pain. Puncture wound superior patella. TECHNIQUE: 3 view FINDINGS: I see no fracture nor dislocation. Joint spaces are fairly normal. There is no sign of join t effusion. The patella appears intact. I see no bony destructive process. IMPRESSION: Negative left knee exam. No evidence of a foreign body.
== END | disposition home or self-care (01) ==
LOC: RADXRMAIN 16:52
PROVIDERS: ATTEND Emergency Medicine
DX: S80.02XA Contusion of left knee, initial encounter (principal); S81.002A Unspecified open wound, left knee, initial encounter

== ENCOUNTER → 2021-02-09 | Outpatient (CLI) | payer BC ==
[2021-02-10 01:59] LABS: Anion Gap 8.5 mmol/L (4.00-12.00); Calcium 9.1 mg/dL (8.7-10.3); Carbon Dioxide 28.5 mmol/L (21.6-31.8); Magnesium 2.1 mg/dL (1.5-2.4); Potassium 4.6 mmol/L (3.5-5.5)
== END | disposition home or self-care (01) ==
LOC: LABWHC1 15:03
PROVIDERS: ATTEND Internal Medicine Cardiovascular Disease
DX: R06.00 Dyspnea, unspecified (principal); R00.2 Palpitations
CPT/HCPCS: 36415; 80051; 82310; 83735; 84443